=== PATIENT | female | born 1985 | race African-American/Black ===

== ENCOUNTER 2019-06-19 03:00 | Inpatient (IN) | payer OTHER ==
[2019-06-19 03:39] VITALS: BMI 30.7
[2019-06-19] MEDS ORDERED: ELECTROLYTE-148 SOLN 1,000 ML IV SCH (04:00)
[2019-06-19] MEDS ORDERED: OXYTOCIN 30 UNITS in 0.9% NS 30 UNIT/500 ML INFUS.BAG IVPB ONE (04:25)
[2019-06-19] MEDS ORDERED: OXYTOCIN 30 UNITS in 0.9% NS 30 UNIT/500 ML INFUS.BAG IVPB SCH (04:30)
[2019-06-19 04:32] LABS: EOS % 1.3 % (0-4.5); HEMATOCRIT 33.2 % (32.4-45.2); HEMOGLOBIN 11.1 GM/dL (10.7-15.3); LYMPH % 29.8 % (8-40); MCH 31.2 pg (25.7-33.7); MCHC 33.5 g/dl (32.0-36.0); MEAN CELL VOLUME 92.9 fl (80-96); MEAN PLT VOLUME 9.5 fl (7.5-11.1); MONO % 8.1 % (3.8-10.2); NEUT % 59.8 % (42.8-82.8); PLATELET COUNT 245 K/MM3 (134-434); RBC 3.57 M/mm3 (3.60-5.2); RDW 13.4 % (11.6-15.6); WHITE BLOOD COUNT 8.7 K/mm3 (4.0-10.0)
[2019-06-19 04:38] LABS: INR 0.87 (0.83-1.09); PROTHROMBIN TIME (PATIENT) 10.2 SEC (9.7-13.0)
[2019-06-19 04:41] LABS: ACTIVATED PTT 37.1 SECONDS (25.2-36.5)
[2019-06-19 04:56] LABS: BLOOD UREA NITROGEN 7.8 mg/dL (7-18); CALCIUM 8.4 mg/dL (8.5-10.1); CREATININE 0.7 mg/dL (0.55-1.3); POTASSIUM 4.1 mmol/L (3.5-5.1)
[2019-06-19] MEDS ORDERED: PROMETHAZINE HCL 25 MG/1 ML VIAL ONE (06:48)
[2019-06-19] MEDS ORDERED: BUTORPHANOL TARTRATE 1 MG/ML VIAL ONE (06:48)
[2019-06-19] MEDS ORDERED: PROMETHAZINE HCL 25 MG/1 ML VIAL IVPB ONE (07:00)
[2019-06-19] MEDS ORDERED: BUTORPHANOL TARTRATE 1 MG/ML VIAL IVPB ONE (07:00)
[2019-06-19] MEDS ORDERED: OXYTOCIN 20 UNITS in 0.9% NS 20 UNIT/1,000 ML INFUS.BAG IV ONE (07:12)
[2019-06-19] MEDS ORDERED: METHYLERGONOVINE MALEATE 0.2 MG/1 ML AMP IM PRN (07:44)
[2019-06-19] MEDS ORDERED: BENZOCAINE 20% 57 GM BOTTLE TP PRN (07:44)
[2019-06-19] MEDS ORDERED: BISACODYL 10 MG SUPP.RECT RC PRN (07:44)
[2019-06-19] MEDS ORDERED: IBUPROFEN 600 MG TABLET (FP) PO PRN (07:44)
[2019-06-19] MEDS ORDERED: BENZOCAINE 28 GM HEMORRHOIDAL OINTMENT TP PRN (07:44)
[2019-06-19] MEDS ORDERED: ACETAMINOPHEN 325 MG TABLET (FP) PO PRN (07:44)
[2019-06-19] MEDS ORDERED: WITCH HAZEL 50% (TUCKS) 40 PAD/JAR PAD TP PRN (07:44)
[2019-06-19] MEDS ORDERED: OXYTOCIN 20 UNITS in 0.9% NS 20 UNIT/1,000 ML INFUS.BAG IV SCH (07:45)
--- NOTE | 2019-06-19 07:52 | HP ---
Past Medical History - Admission History of Present Illness: 34 yo @ 39 1/7 wks by first trimester ultrasound, EDC 06/25/2019 complicated by: 1. 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 History of full term delivery and a delivery at 34 weeks No intervention patient presents with chief complaint of leakage of fluid at 0230. She reports movement denies vaginal bleeding. History Source: Patient Limitations to Obtaining History: No Limitations - Past Medical History Cardiovascular: No: HTN Pulmonary: No: Asthma ...: 6 ...Para: 2 ...Term: 1 ...: 1 ...Spon : 3 ...Induced : 0 ...Multiple Gestation: 0 ...LMP: 09/16/18 ... Weeks Gestation by Dates: 39.2 ...EDC by Dates: 06/23/19 ...EDC by Sono: 06/25/19 Heme/Onc: Yes: Anemia (during preganncy) - Past Surgical History Past Surgical History: Yes: None Hx Myomectomy: No Hx Transabdominal Cerclage: No - Smoking History Smoking history: Never smoked Have you smoked in the past 12 months: No Aproximately how many cigarettes per day: 0 - Alcohol/Substance Use Hx Alcohol Use: No History of Substance Use: reports: Marijuana (none during ) - Social History ADL: Independent History of Recent Travel: No Home Medications - Allergies Allergies/Adverse Reactions: Allergies Allergy/AdvReac Type Severity Reaction Status Date / Time No Known Allergies Allergy Verified 06/19/19 04:17 - Home Medications Home Medications: Ambulatory Orders [id number]/Iron/Folic/Docusate [Citranatal Rx Tablet] 1 each PO DAILY 06/14/19 Family Medical History Family History: Denies Review of Systems - Review of Systems Constitutional: reports: No Symptoms Cardiovascular: reports: No Symptoms Respiratory: reports: No Symptoms Gastrointestinal: reports: No Symptoms Genitourinary: reports: No Symptoms Musculoskeletal: reports: No Symptoms Integumentary: reports: No Symptoms Endocrine: reports: No Symptoms Psychiatric: reports: No Symptoms Physical Exam - Maternity Vital Signs: Vital Signs Temperature 98.1 F 06/19/19 06:00 Pulse Rate 98 H 06/19/19 07:00 Respiratory Rate 20 06/19/19 07:00 Blood Pressure 129/76 06/19/19 07:00 O2 Sat by Pulse Oximetry (%) Constitutional: Yes: Well Nourished, No Distress, Calm Cardiovascular: Yes: Regular Rate and Rhythm Lungs: Clear to auscultation - Abdominal Exam/OB Number of Fetuses: Single - Physical Exam Musculoskeletal: Yes: WNL Extremities: Yes: WNL Psychiatric: Yes: Alert, Oriented - Labs Lab Results: CBC, BMP 06/19/19 04:00 06/19/19 04:00 PNL: A positive, antibody negative, RPR NR, HIV neg, HBs Ag neg, Hep C Ab neg, Hg Karen AA, Rubella Immune; Varicella Immune; GCT 73; GBS negative Hemorrhage Risk Assessment - Risk Factors Medium Risk Factors: Yes: None High Risk Factors: Yes: None Risk Score: 1 Risk Level: Medium Risk Assessment/Plan 34 yo @ 39 1/7 wks, PROM 1. Admit to L&D 2. Consents reviewed and signed 3. Pitocin started for augmentation of labor 4. Category I FHT 5. GBS negative 6. Will offer pain medication upon patient request
--- NOTE | 2019-06-19 08:16 | PN ---
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 Weight and length unknown at this time. Head delivered spontaneously followed by shoulders and body without difficulty. Infant with spontaneous cry and placed on mother's abdomen. Nose and mouth was bulb suctioned. Cord was clamped and cut. Perineum and vagina examined, a second degree laceration was noted and repaired in the usual fashion. Placenta was delivered spontaneously and intact. 20 units of pitocin in 1 L IVF was given. All counts correct x 2. Mother and infant stable in LDR. EBL 300cc.
--- NOTE | 2019-06-19 08:22 | DS ---
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 Vital Signs: Vital Signs Temperature 98.1 F 06/19/19 06:00 Pulse Rate 98 H 06/19/19 07:00 Respiratory Rate 20 06/19/19 07:00 Blood Pressure 129/76 06/19/19 07:00 O2 Sat by Pulse Oximetry (%) 100 06/19/19 08:15 Labs: CBC, BMP 06/19/19 04:00 06/19/19 04:00 Delivery - Delivery Vaginal Delivery: No Problems Type of Anesthesia: Local Episiotomy/Laceration: 2nd degree EBL (cc): 300 Delivery, Single - Stages of Labor Date 1st Stage Initiatied: 06/19/19 Time 1st Stage Initiated: 01:00 Date 2nd Stage Initiated: 06/19/19 Time 2nd Stage Initiated: 07:03 Date of Delivery: 06/19/19 Time of Delivery: 07:24 Time Placenta Delivered: 07:31 Placenta: Yes: Expressed - Condition of Infant 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 PPD # 1 patient ambulated, voiding, passing gas, tolerating oral intake and with adequate pain control. She was noted to have asymptomatic anemia on PPD # 1. She fulfilled all criteria for discharge PPD #2 with precautions to call if having increased bleeding, feeling lightheaded/dizziness, heart racing, fevers, chills, chest pain or shortness of breath. Condition: Good - Instructions Diet, Activity, Other Instructions: Physical activity Resume your normal everyday activity as tolerated no heavy lifting or exercise until seen by your surgeon. You may walk unlimited saurabh of and climb stairs. You may resume driving the car when you feel safe and comfortable behind the wheel. No sexual activity as instructed. Diet There are no dietary restrictions. Eat healthy, high-fiber foods. Drink 6 to 8 glasses of liquid each day. This will assist in keeping your bowels are regular. Pain management You may take Tylenol or acetaminophen or Ibuprofen (for example, Motrin, Advil etc.) for moderate to severe pain. Call MD for any of the following: Severe pain not relieved by medication Fever of 101 or higher Excessive bleeding or drainage on dressing Inability to urinate Referrals: Benitez Salamanca MD [Staff Physician] - Disposition: HOME - Home Medications Comprehensive Discharge Medication List: Ambulatory Orders [id number]/Iron/Folic/Docusate [Citranatal Rx Tablet] 1 each PO DAILY 06/14/19
[2019-06-20 07:22] LABS: BASO % 0.7 % (0-2.0); EOS % 1.5 % (0-4.5); HEMATOCRIT 23.8 % (32.4-45.2); HEMOGLOBIN 7.9 GM/dL (10.7-15.3); LYMPH % 23.4 % (8-40); MCHC 33.1 g/dl (32.0-36.0); MEAN CELL VOLUME 93.5 fl (80-96); MEAN PLT VOLUME 8.7 fl (7.5-11.1); MONO % 7.5 % (3.8-10.2); NEUT % 66.9 % (42.8-82.8); PLATELET COUNT 217 K/MM3 (134-434); RBC 2.54 M/mm3 (3.60-5.2); RDW 13.4 % (11.6-15.6); WHITE BLOOD COUNT 13.2 K/mm3 (4.0-10.0)
--- NOTE | 2019-06-20 10:31 | PN ---
Post Progress Note - Subjective Subjective: Patient without acute complaints. Reports tolerating oral intake without nausea or vomiting. Ambulating without dizziness. Denies fevers or chills. Pain well controlled with oral pain medication. without difficulty. Passing flatus. Post Day: 1 Type of Delivery: Vital Signs: Vital Signs Temperature 98.0 F 06/20/19 07:45 Pulse Rate 81 06/20/19 07:45 Respiratory Rate 18 06/20/19 07:45 Blood Pressure 128/53 L 06/20/19 07:45 O2 Sat by Pulse Oximetry (%) 100 06/19/19 21:00 Breast Exam: Yes: Soft Uterus: Yes: Fundus Firm, Fundus below umbilicus Abdomen/GI: Yes: Abdomen soft, Passing flatus, Tolerating PO. No: Abdominal Distention, Tender Lochia: Yes: Serosa Lochia, amount: Small Extremities: Yes: Calves non-tender. No: Edema Perineum: Yes: Laceration Activity: Ambulating - Labs Labs: CBC WBC 13.2 K/mm3 (4.0-10.0) H 06/20/19 06:37 RBC 2.54 M/mm3 (3.60-5.2) L 06/20/19 06:37 Hgb 7.9 GM/dL (10.7-15.3) L 06/20/19 06:37 Hct 23.8 % (32.4-45.2) L D 06/20/19 06:37 MCV 93.5 fl (80-96) 06/20/19 06:37 MCH 31.0 pg (25.7-33.7) 06/20/19 06:37 MCHC 33.1 g/dl (32.0-36.0) 06/20/19 06:37 RDW 13.4 % (11.6-15.6) 06/20/19 06:37 Plt Count 217 K/MM3 (134-434) 06/20/19 06:37 MPV 8.7 fl (7.5-11.1) 06/20/19 06:37 Absolute Neuts (auto) 8.8 K/mm3 (1.5-8.0) H 06/20/19 06:37 Neutrophils % 66.9 % (42.8-82.8) 06/20/19 06:37 Lymphocytes % 23.4 % (8-40) D 06/20/19 06:37 Monocytes % 7.5 % (3.8-10.2) 06/20/19 06:37 Eosinophils % 1.5 % (0-4.5) 06/20/19 06:37 Basophils % 0.7 % (0-2.0) 06/20/19 06:37 Nucleated RBC % 0 % (0-0) 06/20/19 06:37 Assessment/Plan 34 yo PPD # 1 s/p , afebrile, vital signs stable, doing well 1. Continue routine care. 2. AM CBC with mild asymptomatic anemia 3. Rh positive status, no rhogam indicated. 4. Encourage ambulation 5. Continue oral pain medication 6. Anticipate discharge home day #2 7. Patient states desires circumcision for . Discussed risks including infection, bleeding, damage to tip of penis, and unsatisfactory result, resulting in surgical repair or repeat circumcision. Patient expressed understanding and consents to procedure. Reviewed infants chart, cleared for circumcision and normal genitalia per poultry slaughterer, Dr. Quintana
[2019-06-20] MEDS ORDERED: SENNOSIDES/DOCUSATE COMBO (SENNA PLUS) TABLET (UD) PO PRN (22:00)
[2019-06-21 08:13] LABS: BASO % 0.4 % (0-2.0); EOS % 2.2 % (0-4.5); HEMATOCRIT 21.4 % (32.4-45.2); HEMOGLOBIN 7.2 GM/dL (10.7-15.3); LYMPH % 26.2 % (8-40); MCH 31.3 pg (25.7-33.7); MCHC 33.9 g/dl (32.0-36.0); MEAN CELL VOLUME 92.6 fl (80-96); MEAN PLT VOLUME 8.2 fl (7.5-11.1); MONO % 8.6 % (3.8-10.2); NEUT % 62.6 % (42.8-82.8); PLATELET COUNT 239 K/MM3 (134-434); RBC 2.31 M/mm3 (3.60-5.2); RDW 13.4 % (11.6-15.6); WHITE BLOOD COUNT 9.5 K/mm3 (4.0-10.0)
[2019-06-21 11:28] VITALS: BP 126/77; PULSE 88; TEMP 98.3
== END 2019-06-21 10:10 | disposition home or self-care (01) | DRG 560 ==
LOC: JDEL 03:00 → JLDR 03:10 → J3W 09:30
PROVIDERS: ADMIT Obstetrics & Gynecology; ATTEND Obstetrics & Gynecology
PROC: 0KQM0ZZ Repair Perineum Muscle, Open Approach (ICD-10-PCS; principal; 2019-06-19)
PROC: 10E0XZZ Delivery of Products of Conception, External Approach (ICD-10-PCS; 2019-06-19)
DX: O70.1 Second degree perineal laceration during delivery (principal); Z3A.39 39 weeks gestation of pregnancy; Z37.0 Single live birth
CPT/HCPCS: 36415; 59409; 80048; 85025; 85610; 85730; 86593; 86850; 86900; 86901

== ENCOUNTER 2021-07-16 14:50 | Inpatient (IN) | payer OTHER ==
[2021-07-16] MEDS ORDERED: ELECTROLYTE-148 SOLN 1,000 ML IV SCH ×2 (15:30→20:00)
[2021-07-16 16:55] LABS: BASO % 0.7 % (0-2.0); EOS % 1.1 % (0-4.5); HEMATOCRIT 32.8 % (32.4-45.2); HEMOGLOBIN 11.2 GM/dL (10.7-15.3); LYMPH % 24.6 % (8-40); MCH 32.6 pg (25.7-33.7); MCHC 34.2 g/dl (32.0-36.0); MEAN CELL VOLUME 95.2 fl (80-96); MEAN PLT VOLUME 8.2 fl (7.5-11.1); MONO % 6.8 % (3.8-10.2); NEUT % 66.8 % (42.8-82.8); PLATELET COUNT 229 10^3/uL (134-434); RBC 3.44 M/mm3 (3.60-5.2); WHITE BLOOD COUNT 10.5 K/mm3 (4.0-10.0)
[2021-07-16 16:59] LABS: INR 0.96 (0.83-1.09); PROTHROMBIN TIME (PATIENT) 10.8 SEC (9.7-13.0)
[2021-07-16] MEDS ORDERED: AMPICILLIN SODIUM 2 GM VIAL IVPB ONE (17:00)
[2021-07-16] MEDS ORDERED: AMPICILLIN SODIUM 2 GM VIAL ONE (17:00)
[2021-07-16] MEDS ORDERED: AMPICILLIN - 2 GM in SODIUM CHLORIDE 100 ML IVPB ONE (17:00)
[2021-07-16 17:13] VITALS: BMI 28.5
[2021-07-16 17:13] LABS: CALCIUM 8.6 mg/dL (8.5-10.1)
[2021-07-16 17:14] LABS: BLOOD UREA NITROGEN 5.2 mg/dL (7-18)
[2021-07-16 17:17] LABS: CREATININE 0.5 mg/dL (0.55-1.3)
[2021-07-16] MEDS ORDERED: OXYTOCIN 30 UNITS in 0.9% NS 30 UNIT/500 ML INFUS.BAG IVPB ONE (18:45)
[2021-07-16] MEDS ORDERED: BUTORPHANOL TARTRATE 1 MG/ML VIAL IVPUSH ONE (19:46)
[2021-07-16] MEDS ORDERED: PROMETHAZINE HCL 25 MG/1 ML VIAL IVPUSH ONE (19:46)
[2021-07-16] MEDS ORDERED: OXYTOCIN 30 UNITS in 0.9% NS 30 UNIT/500 ML INFUS.BAG IVPB SCH (20:00)
[2021-07-16] MEDS: AMPICILLIN SODIUM 1 GM VIAL IVPB SCH (21:00)
[2021-07-16] MEDS ORDERED: AMPICILLIN SODIUM 1 GM VIAL ONE (21:03)
[2021-07-16] MEDS ORDERED: BUTORPHANOL TARTRATE 2 MG/ML VIAL ONE (21:05)
[2021-07-16] MEDS ORDERED: PROMETHAZINE HCL 25 MG/1 ML VIAL ONE (21:05)
[2021-07-16] MEDS ORDERED: LIDOCAINE HCL 1% PRESERVATIVE FREE - 30ML VIAL ONE (22:22)
[2021-07-16] MEDS ORDERED: OXYTOCIN 20 UNITS in 0.9% NS 20 UNIT/1,000 ML INFUS.BAG IV ONE (22:22)
[2021-07-16] MEDS ORDERED: oxyCODONE HCL 5 MG TABLET PO PRN (22:52)
[2021-07-16] MEDS ORDERED: METHYLERGONOVINE MALEATE 0.2 MG/1 ML AMP IM PRN (22:52)
[2021-07-16] MEDS ORDERED: BENZOCAINE 28 GM HEMORRHOIDAL OINTMENT TP PRN (22:52)
[2021-07-16] MEDS ORDERED: WITCH HAZEL 50% (TUCKS) 40 PAD/JAR PAD TP PRN (22:52)
[2021-07-16] MEDS ORDERED: BENZOCAINE 20% 57 GM BOTTLE TP PRN (22:52)
[2021-07-16] MEDS ORDERED: IBUPROFEN 600 MG TABLET (FP) PO PRN (22:52)
[2021-07-16] MEDS ORDERED: ACETAMINOPHEN 325 MG TABLET (FP) PO PRN (22:52)
[2021-07-16] MEDS ORDERED: BISACODYL 10 MG SUPP.RECT RC PRN (22:52)
[2021-07-16] MEDS ORDERED: OXYTOCIN 20 UNITS in 0.9% NS 20 UNIT/1,000 ML INFUS.BAG IV SCH (23:00)
[2021-07-16 23:18] LABS: CORD HCO3 21.2 mmHg (20-29); CORD PCO2 39.2 mmHg (30-78); CORD pH 7.351 (7.14-7.44)
[2021-07-16 23:19] LABS: CORD HCO3 23.8 mmHg (20-29); CORD PCO2 49.2 mmHg (30-78); CORD pH 7.302 (7.14-7.44)
[2021-07-17] MEDS: AMPICILLIN SODIUM 1 GM VIAL IVPB SCH (02:00)
[2021-07-17] MEDS: PRENATAL VITAMINS W/ FOLIC ACID TABLET (FP) PO SCH (09:14)
[2021-07-17] MEDS ORDERED: SENNOSIDES/DOCUSATE COMBO (SENNA PLUS) TABLET (UD) PO PRN (22:00)
[2021-07-18] MEDS: PRENATAL VITAMINS W/ FOLIC ACID TABLET (FP) PO SCH (09:33)
[2021-07-18 12:37] VITALS: BP 126/63; PULSE 72; TEMP 97.9
== END 2021-07-18 12:40 | disposition home or self-care (01) | DRG 560 ==
LOC: JLDR 14:50 → J3W 07-17 01:58
PROVIDERS: ADMIT Obstetrics & Gynecology; ATTEND Obstetrics & Gynecology
PROC: 10E0XZZ Delivery of Products of Conception, External Approach (ICD-10-PCS; principal; 2021-07-16)
PROC: 0HQ9XZZ Repair Perineum Skin, External Approach (ICD-10-PCS; 2021-07-16)
PROC: 10907ZC Drainage of Amniotic Fluid, Therapeutic from Products of Conception, Via Natural or Artificial Opening (ICD-10-PCS; 2021-07-16)
DX: O36.5930 Maternal care for other known or suspected poor fetal growth, third trimester, not applicable or unspecified (principal); O70.0 First degree perineal laceration during delivery; Z3A.35 35 weeks gestation of pregnancy; Z37.0 Single live birth
CPT/HCPCS: 36415; 36600; 59409; 80048; 82803; 85025; 85610; 85730; 86780; 86850; 86900; 86901; 88307-TC; C9803; U0003; U0005